=== PATIENT | female | born 1975 | race Caucasian/White ===

== ENCOUNTER 2018-11-04 13:49 | Emergency (ER) | payer BC ==
[~2018-11-04 13:49] MED LIST: ISOVUE-370 76%-LOCM 1 ML ONE
[2018-11-04 14:19] LABS: #Eosinphils 0.3 thou/uL (0.0-0.7); #Lymphocytes 2.4 thou/uL (1.20-3.40); #Monocytes 0.5 thou/uL (0.11-0.59); %Basophils 0.4 % (0.0-1.0); %Eosinophils 3.1 % (0.0-10.0); %Lymphocytes 26.2 % (21.0-51.0); %Monocytes 5.2 % (0.0-10.0); %Neutrophils 65.2 % (42.0-75.0); Hemoglobin 14.3 g/dL (12.0-16.0); Mean Corpuscular HGB CONC 34.1 g/dL (32.0-36.0); Mean Corpuscular Hemoglobin 31.4 pg (27.0-31.0); Mean Corpuscular Volume 92.1 fL (78.0-98.0); Mean Platelet Volume 9.1 fL (7.4-10.4); Platelet Count 204 thou/uL (130-400); RBC Distribution Width 12.3 % (11.5-14.5); Red Blood Cell (RBC) Count 4.55 mill/uL (4.20-5.40); White Blood Cell (WBC) Count 9.2 thou/uL (4.8-10.8)
[2018-11-04 14:33] LABS: Bilirubin Negative (Negative); Blood, Urine Negative (Negative); Clarity CLEAR (Clear); Glucose, Urine (Dipstick) Negative (Negative); Leukocyte Negative (Negative); Nitrite Negative (Negative); Protein, Urine (Dipstick) Negative (Neg-Trace); Urobilinogen 0.2 mg/dL (0.2-1.0); pH, Urine 5.5 (5.0-9.0)
[2018-11-04 14:36] LABS: Specific Gravity, Urine 1.004 (1.002-1.036)
[2018-11-04 14:36] LABS: ALT (SGPT) 15 U/L (8-55); AST (SGOT) 17 U/L (5-34); Albumin 4.4 g/dL (3.5-5.0); Alkaline Phosphatase 88 U/L (40-150); Anion Gap 14 mmol/L (10-20); BUN (Urea Nitrogen) 15 mg/dL (7.0-18.7); Bilirubin, Total 0.3 mg/dL (0.2-1.2); Calc. Creatinine Clearance 0 mL/min (70-130); Calcium 9.5 mg/dL (7.8-10.44); Carbon Dioxide 24 mmol/L (22-29); Chloride 104 mmol/L (98-107); Estimated GFR-MDRD 78; Globulin 3.4 g/dL (2.4-3.5); Glucose 97 mg/dL (70-105); Lipase 57 U/L (8-78); Potassium 4.1 mmol/L (3.5-5.1); Protein, Total 7.8 g/dL (6.0-8.3); Sodium 138 mmol/L (136-145)
--- NOTE | 2018-11-04 17:07 | CT ---
CT OF THE ABDOMEN AND PELVIS WITH IV CONTRAST: Date: 11/04/18 INDICATION: Right lower quadrant abdominal pain. Concern for appendicitis. COMPARISON: Prior CT of the chest, abdomen, and pelvis dated 01/27/16. FINDINGS: There is a normal appendix in the right lower quadrant of the abdomen. Bladder, rectum, and perirectal soft tissues are unremarkable appearing. There are a few scattered diverticula involving the sigmoid colon. There is a mild amount of retained stool within the colon. The small bowel is of normal caliber. Lung bases, liver, spleen, pancreas, and adrenal glands are normal appearing. Kidneys are normal appe aring. No hydronephrosis is evident. No acute osseous abnormality is evident. There is partial visualization of instrumentation involving the right proximal femur. IMPRESSION: No definite CT explanation for the patient's abdominal pain. POS: [facility]
[2018-11-04] MEDS ORDERED: Morphine 4 MG/ML VIAL ONE (17:49)
[2018-11-04] MEDS ORDERED: Ondansetron PF 4 MG/2 ML Vial ONE (17:49)
[2018-11-04] MEDS ORDERED: Metoclopramide HCl 10 MG/2 ML VIAL ONE (17:59)
[2018-11-04] MEDS ORDERED: Dicyclomine 20 MG TAB ONE (17:59)
--- NOTE | 2018-11-04 18:51 | ULT ---
ULTRASOUND PELVIC TRANSVAGINAL 11/04/18 HISTORY: Right lower quadrant pain. COMPARISON: CT same day. FINDINGS: The uterus is surgically absent. The right ovary measures 3.2 x 2.2 x 1.8 cm. Left ovary measures 2.2 x 1.9 x 1.5 cm. Adequate vascular flow to both ovaries. No adnexal mass is appreciated. IMPRESSION: Normal exam. POS: [facility]
== END 2018-11-04 19:10 | disposition home or self-care (01) ==
LOC: ERS 13:49 → MERGE 13:49 → ERS 19:10
DX: R10.31 Right lower quadrant pain (principal); I10 Essential (primary) hypertension; F17.210 Nicotine dependence, cigarettes, uncomplicated
CPT/HCPCS: 36415; 74177; 76856; 80053; 81003; 83690; 85025; 96365; 96375; J2270; J2405; J2765; Q9966

== ENCOUNTER 2020-12-12 15:40 | Outpatient (CLI) | payer BC | END 2020-12-12 15:41 | disposition home or self-care (01) | LOC: RAD 15:40 | PROVIDERS: ATTEND Family Medicine | DX: R06.02 Shortness of breath (principal); M54.6 Pain in thoracic spine | CPT/HCPCS: 71046 ==